=== PATIENT | male | born 2005 | race Caucasian/White ===

== ENCOUNTER 2024-03-01 00:40 | Emergency (ER) | payer SELFPAY ==
[~2024-03-01] VITALS: Ht 190.5 cm; Wt 113.6 kg
[2024-03-01 00:43] VITALS: TEMP 97.7
[2024-03-01] MEDS ORDERED: Sulfamethoxazole/Trimethoprim 800-160 MG TAB PO ONE (01:00)
[2024-03-01] MEDS ORDERED: BACTRIM DS 8001 TAB PO (01:24)
[2024-03-01 01:30] VITALS: BP 123/84; PULSE 68
== END 2024-03-01 01:31 | disposition home or self-care (01) ==
LOC: COL.ER 00:40
DX: T63.331A Toxic effect of venom of brown recluse spider, accidental (unintentional), initial encounter (principal)